=== PATIENT | female | born 1985 | race Caucasian/White ===

== ENCOUNTER 2017-04-19 11:36 | Emergency (ER) | payer MEDICAID ==
[2017-04-19 11:47] VITALS: RESP 18; TEMP 98.7
--- NOTE | 2017-04-19 12:24 | C.PDOC ---
History Of Present Illness 31 y/o female presents to ED for evaluation of allergic reaction to both hands which developed 4 days ago. 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 Pt complains of redness, and itching to both hands. Notes applying vaseline to the area, but states itching still persists. Pt notes that symptoms have mildly improved since it first started. Notes that she has history of similar reaction to hair dyes. Denies fever, chills, difficulty swallowing, throat swelling, or shortness of breath. Time Seen by Provider: 04/19/17 11:53 Chief Complaint (Nursing): Allergic Reaction History Per: Patient History/Exam Limitations: no limitations Onset/Duration Of Symptoms: Days (4) Current Symptoms Are (Timing): Still Present Associated Symptoms: Skin Rash, Itching. denies: Trouble Swallowing, Dizziness Recent travel outside of the [place]: No Additional History Per: Patient Past Medical History Reviewed: Historical Data, Nursing Documentation, Vital Signs Vital Signs: Last Vital Signs Temp 98.7 F 04/19/17 11:42 Pulse 85 04/19/17 12:49 Resp 18 04/19/17 12:49 BP 118/75 04/19/17 12:49 Pulse Ox 96 04/19/17 14:33 - Medical History PMH: Anxiety, Migraine Family History: States: Unknown Family Hx - Social History Hx Tobacco Use: No Hx Alcohol Use: No Hx Substance Use: No - Immunization History Hx Tetanus Toxoid Vaccination: No Hx Influenza Vaccination: No Hx Pneumococcal Vaccination: No Review Of Systems Except As Marked, All Systems Reviewed And Found Negative. Constitutional: Negative for: Fever, Chills ENT: Negative for: Throat Pain, Throat Swelling Respiratory: Negative for: Shortness of Breath Skin: Positive for: Other (redness and itching to b/l hands) Neurological: Negative for: Weakness, Numbness Physical Exam - Physical Exam Appears: Non-toxic, No Acute Distress Skin: Warm, Dry, Other (erythema and scaling to web spaces and dorsal aspect of right hand. Mild erythema and scaling to left hand. No bleeding, warmth, or signs of infection. ) Head: Atraumatic, Normacephalic Eye(s): bilateral: Normal Inspection, EOMI Nose: Normal Oral Mucosa: Moist Tongue: Normal Appearing, No Swelling Lips: Normal Appearing, No Swelling Throat: Normal, No Erythema Neck: Normal ROM, Supple Chest: Symmetrical Cardiovascular: Rhythm Regular Respiratory: Normal Breath Sounds, No Accessory Muscle Use Extremity: Normal ROM, No Tenderness, Capillary Refill (<2 sec.), No Deformity, No Swelling Extremity: Bilateral: Atraumatic, Normal ROM Pulses: Left Radial: Normal, Right Radial: Normal Neurological/Psych: Oriented x3, Normal Speech, Normal Motor, Normal Sensation ED Course And Treatment O2 Sat by Pulse Oximetry: 96 (on RA) Pulse Ox Interpretation: Normal Progress Note: Pt admits that she is right hand dominant, and frequently washes hair with hot water using her right hand. Notes using Hydrocortisone in the past with relief when she had similar allergic reaction. Notes that she is allergic to Benadryl and steriods and does not want to take any PO medication. Pt is being discharged home with instructions to follow up with industrial relations representative in 1-2 days for further evaluation. Disposition - Disposition Disposition: HOME/ ROUTINE Disposition Time: 12:24 Condition: STABLE Additional Instructions: Follow up with your primary medical doctor or clinic in 2-5 days for further evaluation. Take medications as prescribed. Return to the emergency department at any time if symptoms persist or worsen. Prescriptions: Hydrocortisone 1% Cream [Cortizone 1% Cream] 1 appl TP TID #1 tube Instructions: Contact Dermatitis (ED) Forms: [facility] ([place]bek), Work Excuse - Clinical Impression Clinical Impression: Contact dermatitis - PA / IRON CARRIER / Resident Statement MD/DO has reviewed & agrees with the documentation as recorded. - Scribe Statement The provider has reviewed the documentation as recorded by the Sylvain Flores All medical record entries made by the Sylvain were at my direction and personally dictated by me. I have reviewed the chart and agree that the record accurately reflects my personal performance of the history, physical exam, medical decision making, and the department course for this patient. I have also personally directed, reviewed, and agree with the discharge instructions and disposition.
[2017-04-19 12:50] VITALS: BP 118/75; PULSE 85
[2017-04-19 13:08] VITALS: O2SAT 96
== END 2017-04-19 12:49 | disposition home or self-care (01) ==
LOC: C.ER 11:36
DX: L25.9 Unspecified contact dermatitis, unspecified cause (principal)

== ENCOUNTER 2017-07-01 12:21 | Emergency (ER) | payer MEDICAID ==
[2017-07-01 12:27] VITALS: BMI 31.3
[2017-07-01 12:30] VITALS: BP 116/77; PULSE 86; RESP 16; TEMP 98; O2SAT 95
--- NOTE | 2017-07-01 12:45 | C.PDOC ---
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 She was seen here for the same and prescribed hydrocortisone 1% with some improvement. Time Seen by Provider: 07/01/17 12:32 Chief Complaint (Nursing): Allergic Reaction History Per: Patient Onset/Duration Of Symptoms: Days (about 1 week) Current Symptoms Are (Timing): Still Present Associated Symptoms: Skin Rash, Itching. denies: Dyspnea, Trouble Swallowing, Dizziness Home/EMS Treatment: None Severity: Moderate Additional History Per: Prior Records Past Medical History Reviewed: Historical Data, Nursing Documentation, Vital Signs Vital Signs: Last Vital Signs Temp 98.0 F 07/01/17 12:30 Pulse 86 07/01/17 12:30 Resp 16 07/01/17 12:30 BP 116/77 07/01/17 12:30 Pulse Ox 95 07/01/17 12:30 - Medical History PMH: Anxiety, Migraine Family History: States: Unknown Family Hx - Social History Hx Tobacco Use: No Hx Alcohol Use: No Hx Substance Use: No - Immunization History Hx Tetanus Toxoid Vaccination: No Hx Influenza Vaccination: No Hx Pneumococcal Vaccination: No Review Of Systems Except As Marked, All Systems Reviewed And Found Negative. Constitutional: Negative for: Fever, Weakness Eyes: Negative for: Conjunctivae Inflammation, Eyelid Inflammation, Redness ENT: Negative for: Mouth Swelling, Throat Pain, Throat Swelling Respiratory: Negative for: Cough, Shortness of Breath Gastrointestinal: Negative for: Vomiting, Abdominal Pain, Diarrhea Musculoskeletal: Negative for: Neck Pain Skin: Positive for: Rash (on hands) Neurological: Negative for: Weakness, Numbness, Seizures, Altered Mental Status Physical Exam - Physical Exam Appears: Non-toxic, No Acute Distress Skin: Warm, Dry, Rash (on b/l hand/wrists eczematous appearing. ) Head: Atraumatic, Normacephalic Eye(s): bilateral: Normal Inspection, PERRL, EOMI Oral Mucosa: Moist, No Drooling, No Trismus Throat: Normal Neck: Normal ROM, Supple Cardiovascular: Rhythm Regular Respiratory: Normal Breath Sounds, No Accessory Muscle Use, No Stridor, No Wheezing Gastrointestinal/Abdominal: Soft, No Tenderness Extremity: Normal ROM, No Pedal Edema Neurological/Psych: Oriented x3, Normal Speech, Normal Motor ED Course And Treatment O2 Sat by Pulse Oximetry: 95 Pulse Ox Interpretation: Normal Disposition Counseled Patient/Family Regarding: Diagnosis, Need For Followup, Rx Given - Disposition Referrals: Saul Galaviz MD [Staff Provider] - Disposition: HOME/ ROUTINE Disposition Time: 12:47 Condition: STABLE Additional Instructions: Follow up with a Induction Brazer for further evaluation and treatment. Return to the ER if you develop fever, throat swelling, trouble breathing, worsening of symptoms or if you have any other concerns. Prescriptions: Hydrocortisone 2.5% 1 applic TOP BID #1 oint Instructions: Contact Dermatitis (ED) Forms: [facility] (Citizen Of [place]) - Clinical Impression Clinical Impression: Hand dermatitis
== END 2017-07-01 12:59 | disposition home or self-care (01) ==
LOC: C.ER 12:21
DX: L30.9 Dermatitis, unspecified (principal)

== ENCOUNTER 2018-01-11 11:53 | Emergency (ER) | payer SELFPAY ==
[2018-01-11 11:53] VITALS: BMI 31.3
[2018-01-11 11:58] VITALS: BP 106/71; PULSE 87; RESP 18; TEMP 99.5; O2SAT 100
--- NOTE | 2018-01-11 12:09 | C.PDOC ---
History Of Present Illness Patient reports three day history of red, itchy rash on her chest. Denies any other symptoms such as fever, wheezing dyspnea, other rash. Has used no new soaps, lotions, detergents, or worn any new necklaces. 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 She uses clobetazol for frequent rash that she develops on her hands at work, but has not tried the medication on her current chest rash. She also notes allergies to store brand hydrocortisone and to benadryl, so she has not tried any other medication for this new rash. Time Seen by Provider: 01/11/18 12:01 Chief Complaint (Nursing): Allergic Reaction History Per: Patient History/Exam Limitations: no limitations Onset/Duration Of Symptoms: Days Current Symptoms Are (Timing): Still Present Possible Cause: Unknown Associated Symptoms: Skin Rash, Itching, Redness. denies: Swelling, Dyspnea, Trouble Swallowing, Dizziness, Chest Pain Home/EMS Treatment: None Past Medical History Vital Signs: Last Vital Signs Temp 99.5 F 01/11/18 11:55 Pulse 87 01/11/18 11:55 Resp 18 01/11/18 11:55 BP 106/71 01/11/18 11:55 Pulse Ox 100 01/11/18 12:09 - Medical History PMH: Anxiety, Migraine Family History: States: Unknown Family Hx - Social History Hx Tobacco Use: No Hx Alcohol Use: No Hx Substance Use: No - Immunization History Hx Tetanus Toxoid Vaccination: No Hx Influenza Vaccination: No Hx Pneumococcal Vaccination: No Review Of Systems Except As Marked, All Systems Reviewed And Found Negative. Constitutional: Negative for: Fever Eyes: Negative for: Conjunctivae Inflammation Cardiovascular: Negative for: Chest Pain Respiratory: Negative for: Cough, Shortness of Breath Gastrointestinal: Negative for: Nausea, Vomiting, Abdominal Pain Skin: Positive for: Rash Physical Exam - Physical Exam Appears: Well, Non-toxic, No Acute Distress Skin: Rash (Erythematous, mildly rasied rash to upper chest. No vesicles noted. No discharge.) Head: Atraumatic Eye(s): bilateral: Normal Inspection Nose: Normal Oral Mucosa: Moist, Other (No rash to mucous membranes) Tongue: Normal Appearing Lips: Normal Appearing Gingiva: Normal Appearing Throat: Normal Neck: Normal Cardiovascular: Rhythm Regular Respiratory: Normal Breath Sounds Gastrointestinal/Abdominal: Normal Exam Extremity: No Swelling Neurological/Psych: Oriented x3, Normal Speech 1 - Rash ED Course And Treatment O2 Sat by Pulse Oximetry: 100 Medical Decision Making Medical Decision Making: Patient states that she cannot use "store brand" hydrocortisone because she develops hives. Also reports allergy to benadryl. Will write her an Rx for triamcinolone. She can also use OTC remedies such as calamine lotion. Advised following up with her PMD and printed circuit designer. Return for new or worsening symptoms, especially for dyspnea or wheezing. Disposition - Disposition Disposition: HOME/ ROUTINE Disposition Time: 12:15 Condition: GOOD Additional Instructions: Please use steroid ointment as prescribed. Follow up with your primary care physician and printed circuit designer. Return to the ED for any new or worsening symptoms especially for shortness of breath or wheezing. Prescriptions: Triamcinolone 0.25% [Triamcinolone 0.25% Oint] 15 gm EXT TID #1 oin Instructions: Dermatitis Forms: [facility] ([place]er) - Clinical Impression Clinical Impression: Dermatitis
== END 2018-01-11 12:15 | disposition home or self-care (01) ==
LOC: C.ER 11:53
DX: L30.9 Dermatitis, unspecified (principal)